=== PATIENT | female | born 2000 | race Caucasian/White ===

== ENCOUNTER 2022-03-03 08:03 | Emergency (ER) | payer OTHER ==
[2022-03-03] MEDS ORDERED: Sodium Chloride 0.9% 10 ML Syringe FLUSH PRN (08:41)
[2022-03-03] MEDS ORDERED: diphenhydrAMINE 50 MG/ML SDV IVPUSH ONE (08:42)
[2022-03-03] MEDS ORDERED: Metoclopramide 10 MG/2 ML SDV IVPUSH ONE (08:42)
[2022-03-03] MEDS ORDERED: Ketorolac 30 MG/ML SDV IVPUSH ONE (08:42)
[2022-03-03 09:41] LABS: ESTIMATED GFR 94 mL/min (>60)
== END 2022-03-03 10:40 | disposition home or self-care (01) ==
LOC: JD.ED 08:03
DX: R07.89 Other chest pain (principal); R51.9 Headache, unspecified; Z88.2 Allergy status to sulfonamides
CPT/HCPCS: 36415; 71045; 80053; 83690; 84484; 84703; 85025; 85379; 86308; 93005; 96374; 96375; 99285; J1200; J1885; J2765; J3490